=== PATIENT | male | born 1980 | race African-American/Black ===

== ENCOUNTER 2018-03-31 06:56 | Emergency (ER) | payer MEDICARE, MEDICAID ==
--- NOTE | 2018-03-31 08:15 | ER Document Report ---
ED General - General Chief Complaint: Facial Swelling Stated Complaint: FACE SWELLING Time Seen by Provider: 03/31/18 07:30 Primary Care Provider: GABRIEL SEGURA MD [ACTIVE STAFF] - Follow up as needed Notes: 38-year-old -Iranian male to the emergency department for evaluation of facial swelling. Patient has abrasion on the right zygoma area of the face with significant facial swelling. Small amount of bleeding but no suturable lacerations. Patient is sleepy. Patient does not know what happened. TRAVEL OUTSIDE OF THE [place] IN LAST 30 DAYS: No - HPI Onset: Just prior to arrival Quality of pain: Achy Severity: Mild - Related Data Allergies/Adverse Reactions: No Known Allergies Allergy (Unverified 01/02/16 13:47) Past Medical History - General Information source: Patient - Social History Smoking Status: Current Every Day Smoker Chew tobacco use (# tins/day): No Frequency of alcohol use: Occasional Family History: Reviewed & Not Pertinent Patient has suicidal ideation: No Patient has homicidal ideation: No Endocrine Medical History: Denies: Hx Diabetes Mellitus Type 1, Hx Diabetes Mellitus Type 2 Renal/ Medical History: Denies: Hx Peritoneal Dialysis GI Medical History: Reports: Hx Ulcer - Ruptured requiring surgery Psychiatric Medical History: Reports: Hx Depression Review of Systems - Review of Systems Notes: Constitutional: denies: Chills, Diaphoresis, Fever, Malaise, Weakness EENT: denies: Eye discharge, Blurred vision, Tearing, Double vision, Nose congestion, Nose discharge, Throat swelling,. Complaining of facial swelling and right-sided facial pain Cardiovascular: denies: Palpitations, Heart racing, Orthopnea, Dyspnea, Chest pain Respiratory: denies: Cough, Hurts to breathe, Wheezing, Shortness of breath Gastrointestinal: denies: Abdominal pain, Diarrhea, Nausea, Vomiting, Black stools, bright red blood in stool Genitourinary: denies: Burning, Dysuria, Discharge, Frequency, Flank pain, Hematuria Musculoskeletal: denies: Joint pain, Joint swelling, Muscle pain, Muscle stiffness, back pain Hematologic/Lymphatic: denies: Anemia, Easy bleeding, Easy bruising, Blood clots Neurological/Psychological: denies: Confusion, Dementia, Depression, Loss of consciousness Skin: No lesions, no masses, no skin breakdown, no abscesses Physical Exam - Vital signs Vitals: Temp Pulse Resp BP Pulse Ox 97.9 F 85 16 120/67 99 03/31/18 07:13 03/31/18 07:13 03/31/18 07:13 03/31/18 07:13 03/31/18 07:13 Interpretation: Normal - General General appearance: Appears well, Alert - HEENT Head: Normocephalic, Atraumatic Eyes: Normal Pupils: PERRL Notes: Patient has significant amount of edema noted to the right side of the face and there is a small abrasion at the right zygoma. No missing teeth that I can see. No active bleeding. Small amount of dried blood in the right nare. Cervical spine is nontender. Full range of motion. - Respiratory Respiratory status: No respiratory distress Chest status: Nontender Breath sounds: Normal Chest palpation: Normal - Cardiovascular Rhythm: Regular Heart sounds: Normal auscultation Murmur: No - Abdominal Inspection: Normal Distension: No distension Bowel sounds: Normal Tenderness: Nontender Organomegaly: No organomegaly - Back Back: Normal, Nontender - Extremities General upper extremity: Normal inspection, Nontender, Normal color, Normal ROM, Normal temperature General lower extremity: Normal inspection, Nontender, Normal color, Normal ROM, Normal temperature, Normal weight bearing. No: Valerie's sign - Neurological Neuro grossly intact: Yes Cognition: Normal Orientation: AAOx4 [place] Coma Scale Eye Opening: Spontaneous [place] Coma Scale Verbal: Oriented Eugenio Coma Scale Motor: Obeys Commands [place] Coma Scale Total: 15 Speech: Normal Motor strength normal: LUE, RUE, LLE, RLE Sensory: Normal - Psychological Associated symptoms: Normal affect, Normal mood - Skin Skin Temperature: Warm Skin Moisture: Dry Skin Color: Normal Course - Re-evaluation Re-evalutation: 03/31/18 10:[address] 03/31/18 08:14 IMPRESSION: Soft tissue swelling. No acute fracture. Marked chronic left maxillary sinus disease. Head CT 03/31/18 08:14 IMPRESSION: NORMAL BRAIN CT WITHOUT CONTRAST. Chronic left maxillary sinus disease. EVIDENCE OF ACUTE STROKE: NO. Laboratory 03/31/18 09:17 POC Glucose 119 H Patient likely with traumatic hematoma to the face. CT scan shows maxillary sinusitis. Will start him on some antibiotics. CT head negative. No obvious fracture. - Vital Signs Vital signs: Temp Pulse Resp BP Pulse Ox 97.4 F 68 16 106/67 97 03/31/18 09:15 03/31/18 09:15 03/31/18 09:15 03/31/18 09:15 03/31/18 09:15 - Laboratory Laboratory results interpreted by me: 03/31/18 09:17 POC Glucose 119 H Discharge - Discharge Clinical Impression: Right maxillary sinusitis Condition: Good Disposition: HOME, SELF-CARE Instructions: Abrasions of the Face ([facility]), Sinusitis ([facility]) Prescriptions: Amox Tr/Potassium Clavulanate [Augmentin 875-125 Tablet] 1 tab PO BID 10 Days #20 tablet Referrals: GABRIEL SEGURA MD [ACTIVE STAFF] - Follow up as needed
--- NOTE | 2018-03-31 08:51 | RADIOLOGY REPORT (SQ) ---
EXAM DESCRIPTION: CT FACIAL AREA WITHOUT COMPLETED DATE/TIME: 03/31/2018 8:40 am REASON FOR STUDY: fall, altered, right facial swelling COMPARISON: None. TECHNIQUE: Noncontrasted images through the facial bones and orbits windowed for bone and soft tissu e. Additional coronal and sagittal reconstructed images reviewed. All images stored on PACS. All CT scanners at this facility use dose modulation, iterative reconstruction, and/or weight based d osing when appropriate to reduce radiation dose to as low as reasonably achievable (ALARA). [facility]: Dose Right [facility]: CareDose [facility]: Dose Right [facility]: Teradose 4D [facility]: [employer] RADIATION DOSE: CT Rad equipment meets quality standard of care and radiation dose reduction techniq ues were employed. CTDIvol: 30.4 mGy. DLP: 604 mGy-cm. mGy. LIMITATIONS: None. FINDINGS: FACIAL BONES: No fracture or bone lesion. ORBITS: Intact. No fracture. Symmetric intact globes and retroorbital soft tissues. PARANASAL SINUSES: complete opacification of the left maxillary sinus. No nasal polyps. SOFT TISSUES: No mass or edema. INFERIOR BRAIN: Limited view. No acute findings. OTHER: Marked facial soft tissue swelling on the right. IMPRESSION: Soft tissue swelling. No acute fracture. Marked chronic left maxillary sinus disease. TECHNICAL DOCUMENTATION: JOB ID: [id number] Quality ID # [id number]: Final reports with documentation of one or more dose reduction techniques (e.g., Au tomated exposure control, adjustment of the mA and/or kV according to patient size, use of iterative reconstruction technique) 2010 [employer]- All Rights Reserved Reading location - IP/workstation name: [email or web address]
[2018-03-31 09:23] VITALS: BP 106/67
[2018-03-31] MEDS ORDERED: AMOXICILLIN TR/POT CLAVULANATE 500-125 MG TAB PO ONE (09:26)
[2018-03-31] MEDS ORDERED: IBUPROFEN 800 MG TABLET PO ONE (09:27)
--- NOTE | 2018-03-31 10:02 | RADIOLOGY REPORT (SQ) ---
EXAM DESCRIPTION: CT HEAD WITHOUT COMPLETED DATE/TIME: 03/31/2018 8:40 am REASON FOR STUDY: fall, altered COMPARISON: None. TECHNIQUE: Axial images acquired through the brain without intravenous contrast. Images reviewed wi th bone, brain and subdural windows. Additional sagittal and coronal reconstructions were generated. Images stored on PACS. All CT scanners at this facility use dose modulation, iterative reconstruction, and/or weight based d osing when appropriate to reduce radiation dose to as low as reasonably achievable (ALARA). [facility]: Dose Right [facility]: CareDose [facility]: Dose Right [facility]: Teradose 4D [facility]: [employer] RADIATION DOSE: CT Rad equipment meets quality standard of care and radiation dose reduction techniq ues were employed. CTDIvol: 53.2 mGy. DLP: 1097 mGy-cm. mGy. LIMITATIONS: None. FINDINGS: VENTRICLES: Normal size and contour. CEREBRUM: No masses. No hemorrhage. No midline shift. No evidence for acute infarction. Normal gra y/white matter differentiation. No areas of low density in the white matter. CEREBELLUM: No masses. No hemorrhage. No alteration of density. No evidence for acute infarction. EXTRAAXIAL SPACES: No fluid collections. No masses. ORBITS AND GLOBE: No intra- or extraconal masses. Normal contour of globe without masses. CALVARIUM: No fracture. PARANASAL SINUSES: Complete opacification of the left maxillary sinus. SOFT TISSUES: No mass or hematoma. OTHER: No other significant finding. IMPRESSION: NORMAL BRAIN CT WITHOUT CONTRAST. Chronic left maxillary sinus disease. EVIDENCE OF ACUTE STROKE: NO. COMMENT: Quality ID # [id number]: Final reports with documentation of one or more dose reduction techniques (e.g., Automated exposure control, adjustment of the mA and/or kV according to patient size, use of iterative reconstruction technique) TECHNICAL DOCUMENTATION: JOB ID: [id number] [employer]- All Rights Reserved Reading location - IP/workstation name: [email or web address]
== END 2018-03-31 10:51 | disposition home or self-care (01) ==
LOC: ER 06:56
DX: J32.0 Chronic maxillary sinusitis (principal); R22.0 Localized swelling, mass and lump, head; F17.200 Nicotine dependence, unspecified, uncomplicated
CPT/HCPCS: 99284; 82962; 70450; 70486; A9270 ×2

== ENCOUNTER 2018-04-01 09:38 | Emergency (ER) | payer MEDICARE, MEDICAID ==
[2018-04-01 09:50] VITALS: BP 127/74
--- NOTE | 2018-04-01 10:28 | ER Document Report ---
ED Eye Complaint - General Chief Complaint: Eye Pain Stated Complaint: EYE SWOLLEN Time Seen by Provider: 04/01/18 10:18 Notes: 38-year-old male to the emergency department for evaluation of facial swelling. Patient was seen yesterday. Does not remember what he was diagnosed with. Once his eye rechecked because there is persistent swelling. Patient admits that he passed out while drinking and hit his head. Denies any back pain or chest pain. No hip pain. No blurred vision. No severe headache. Did not get his antibiotics filled because he states that the prescription got wet in his discharge instructions got wet so he could not read them and he could not get the prescription filled. TRAVEL OUTSIDE OF THE [place] IN LAST 30 DAYS: No - Related Data Allergies/Adverse Reactions: No Known Allergies Allergy (Verified 04/01/18 09:39) Past Medical History - General Information source: Patient - Social History Smoking Status: Current Every Day Smoker Chew tobacco use (# tins/day): No Frequency of alcohol use: Occasional Drug Abuse: None Lives with: Alone Family History: Reviewed & Not Pertinent Patient has suicidal ideation: No Patient has homicidal ideation: No Endocrine Medical History: Denies: Hx Diabetes Mellitus Type 1, Hx Diabetes Mellitus Type 2 Renal/ Medical History: Denies: Hx Peritoneal Dialysis GI Medical History: Reports: Hx Ulcer - Ruptured requiring surgery Psychiatric Medical History: Reports: Hx Depression Review of Systems - Review of Systems Constitutional: denies: Fever, Malaise, Weakness EENT: See HPI, Eye pain, Other - Facial pain and swelling Cardiovascular: denies: Chest pain, Palpitations, Heart racing Respiratory: denies: Cough, Hurts to breathe, Short of breath, Wheezing Gastrointestinal: denies: Abdominal pain, Diarrhea, Nausea, Vomiting Musculoskeletal: denies: Back pain, Gout, Joint pain, Joint swelling, Leg swelling, Ankle swelling Skin: denies: Change in color, Dryness, Lesions, Lumps, Rash Neurological/Psychological: denies: Confusion, Weakness, Numbness Physical Exam - Vital signs Vitals: Temp Pulse Resp BP Pulse Ox 98.1 F 66 16 127/74 H 96 04/01/18 09:48 04/01/18 09:48 04/01/18 09:48 04/01/18 09:48 04/01/18 09:48 Interpretation: Normal - General General appearance: Appears well, Alert - HEENT Head: Normocephalic, Atraumatic Eyes: Other - Is a subconjunctival hemorrhage to the right lateral eye. Cornea: Normal. No: Corneal abrasion, Corneal ulcer Pupils: PERRL Pharynx: Normal Neck: Normal, Supple Notes: There is facial hematoma on the right zygoma area with small abrasion. No loose teeth. No cracked teeth that I can find that would be related to trauma. No septal hematoma. - Respiratory Respiratory status: No respiratory distress Chest status: Nontender Breath sounds: Normal Chest palpation: Normal - Cardiovascular Rhythm: Regular Heart sounds: Normal auscultation Murmur: No - Abdominal Inspection: Normal Distension: No distension Bowel sounds: Normal Tenderness: Nontender Organomegaly: No organomegaly - Back Back: Normal, Nontender - Extremities General upper extremity: Normal inspection, Nontender, Normal color, Normal ROM, Normal temperature General lower extremity: Normal inspection, Nontender, Normal color, Normal ROM, Normal temperature, Normal weight bearing. No: Valerie's sign - Neurological Neuro grossly intact: Yes Cognition: Normal Orientation: AAOx4 [place] Coma Scale Eye Opening: Spontaneous [place] Coma Scale Verbal: Oriented Eugenio Coma Scale Motor: Obeys Commands Eugenio Coma Scale Total: 15 Speech: Normal Motor strength normal: LUE, RUE, LLE, RLE Sensory: Normal - Psychological Associated symptoms: Normal affect, Normal mood - Skin Skin Temperature: Warm Skin Moisture: Dry Skin Color: Other - Small abrasion on the right zygoma. Course - Re-evaluation Re-evalutation: 04/01/18 10:[address] results from yesterday and looked at the images myself. I find no evidence of facial fractures. Head CT was performed yesterday which was normal. I did resume the antibiotics. Repeat prescription given. Reviewed the results with the patient on the CT scans. Patient is comfortable with this plan. Will DC in stable condition. - Vital Signs Vital signs: Temp Pulse Resp BP Pulse Ox 98.1 F 66 16 127/74 H 96 04/01/18 09:48 04/01/18 09:48 04/01/18 09:48 04/01/18 09:48 04/01/18 09:48 Discharge - Discharge Clinical Impression: Facial contusion Qualifiers: Encounter type: subsequent encounter Qualified Code(s): S00.83XD - Contusion of other part of head, subsequent encounter Subconjunctival bleed Qualifiers: Laterality: right Qualified Code(s): H11.31 - Conjunctival hemorrhage, right eye Maxillary sinusitis, acute Qualifiers: Recurrence: not specified as recurrent Qualified Code(s): J01.00 - Acute maxillary sinusitis, unspecified Condition: Good Disposition: HOME, SELF-CARE Instructions: Contusion ([facility]), Sinusitis ([facility]), Subconjunctival Hemorrhage ( [facility]) Prescriptions: Amox Tr/Potassium Clavulanate [Augmentin 875-125 Tablet] 1 tab PO BID 10 Days #20 tablet Ibuprofen [Motrin 600 Mg Tablet] 600 mg PO TID 5 Days #15 tablet
== END 2018-04-01 10:34 | disposition home or self-care (01) ==
LOC: ER 09:38
DX: S00.83XD Contusion of other part of head, subsequent encounter (principal); H11.31 Conjunctival hemorrhage, right eye; J01.00 Acute maxillary sinusitis, unspecified; R22.0 Localized swelling, mass and lump, head; H57.10 Ocular pain, unspecified eye; W22.8XXA Striking against or struck by other objects, initial encounter; F17.200 Nicotine dependence, unspecified, uncomplicated
CPT/HCPCS: 99282